=== PATIENT | female | born 1985 | race African-American/Black ===

== ENCOUNTER 2017-03-04 01:16 | Emergency (ER) | payer BC ==
[~2017-03-04] VITALS: Ht 167.6 cm; Wt 101.5 kg
[2017-03-04 02:02] LABS: HEMATOCRIT 34.3 % (36.0-46.0); MCH 26.6 PG (29.0-34.0); MCHC 33.8 G/DL (30.0-36.0); MCV 78.7 FL (83-99); MEAN PLAT.VOLUME 10.2 uM^3 (9.5-12.4); PLATELET COUNT 251 K/uL (156-360); RBC DIS.WIDTH-CV 13.7 % (11.8-14.6); RBC DIS.WIDTH-SD 39.1 % (39-53); RED BLOOD COUNT 4.36 M/uL (3.80-5.20); WHITE BLOOD COUNT 7.2 K/uL (4.1-10.2)
[2017-03-04 02:17] LABS: ADD MIUA? NO; BILIRUBIN NEGATIVE; BLOOD NEGATIVE; COLOR YELLOW ((YELLOW)); GLUCOSE (STRIP) NEGATIVE; KETONES NEGATIVE; LEUKOCYTES NEGATIVE; NITRITE NEGATIVE; PROTEIN (STRIP) NEGATIVE; UCUL ADDED? NO; UROBILINOGEN 0.2 MG/DL (0.2-1.0)
[2017-03-04 02:20] LABS: CHLORIDE 105 mEq/L (99-109); SODIUM 136 mEq/L (136-147)
[2017-03-04 02:22] LABS: GLUCOSE 125 mg/dL (70-99)
[2017-03-04 02:23] LABS: ANION GAP 9 MEQ/L (2-14)
[2017-03-04 02:26] LABS: GFR ESTIMATE (CALCULATED) > 59 mL/min/
[2017-03-04 02:27] LABS: UREA NITROGEN (BUN) 7 mg/dL (9-23)
[2017-03-04 02:52] LABS: QUANTITATIVE HCG 20285.8 MIU/ML
[2017-03-04 04:18] VITALS: BP 139/92
== END 2017-03-04 04:19 | disposition home or self-care (01) ==
LOC: EME 01:16
PROVIDERS: Emergency Medicine
DX: O99.89 Other specified diseases and conditions complicating pregnancy, childbirth and the puerperium (principal); R10.33 Periumbilical pain; Z3A.17 17 weeks gestation of pregnancy
CPT/HCPCS: 76815; 80048; 81003; 84702; 85027; 87086; 99281; 99284

== ENCOUNTER → 2017-03-16 | Outpatient (CLI) | payer BC | END | disposition home or self-care (01) | LOC: CDC 10:18 | DX: I10 Essential (primary) hypertension (principal) | CPT/HCPCS: 93000 ==

== ENCOUNTER 2017-07-31 11:31 | Outpatient (CLI) | payer BC, OTHER ==
[2017-07-31] VITALS (11 sets, daily range): BP systolic 123–141; BP diastolic 67–87
[2017-07-31 12:48] LABS: EOSINOPHIL (%) 0.8 % (0-5); HEMATOCRIT 35.7 % (36.0-46.0); IMMATURE GRANULOCYTE (%) 0.5 % (0.0-0.7); INSTRUMENT ABS NEUTROPHIL CT 2.3 K/uL; LYMPHOCYTE COUNT 0.9 K/uL (1.0-2.8); MCH 26.1 PG (29.0-34.0); MCHC 33.6 G/DL (30.0-36.0); MCV 77.6 FL (83-99); MEAN PLAT.VOLUME 10.6 uM^3 (9.5-12.4); MONOCYTE (%) 10.8 % (3-12); MONOCYTE COUNT 0.4 K/uL (0-0.8); NEUTROPHIL (%) 62.7 % (45-76); NEUTROPHIL COUNT 2.3 K/uL (1.8-6.4); PLATELET COUNT 206 K/uL (156-360); RBC DIS.WIDTH-CV 15.2 % (11.8-14.6); RBC DIS.WIDTH-SD 42.2 % (39-53); WHITE BLOOD COUNT 3.7 K/uL (4.1-10.2)
[2017-07-31 12:56] LABS: ADD MIUA? NO; BILIRUBIN NEGATIVE; BLOOD NEGATIVE; COLOR YELLOW ((YELLOW)); GLUCOSE (STRIP) NEGATIVE; KETONES NEGATIVE; LEUKOCYTES NEGATIVE; NITRITE NEGATIVE; PROTEIN (STRIP) NEGATIVE; SPECIFIC GRAVITY 1.008 (1.000-1.030); UCUL ADDED? NO; UROBILINOGEN 0.2 MG/DL (0.2-1.0)
[2017-07-31 12:59] LABS: ANION GAP 7 MEQ/L (2-14); CHLORIDE 108 MEQ/L (99-109); POTASSIUM 4.2 MEQ/L (3.7-5.4); SAMPLE HEMOLYSIS CHECK 0; SAMPLE ICTERIC CHECK 0; SAMPLE LIPEMIA CHECK 0; SODIUM 139 MEQ/L (136-147)
[2017-07-31 13:01] LABS: TOTAL BILIRUBIN 0.4 MG/DL (0.0-1.0)
[2017-07-31 13:04] LABS: ALKALINE PHOSPHATASE 210 IU/L (3-129); GFR ESTIMATE (CALCULATED) > 59 mL/min/; GLUCOSE 78 mg/dL (70-99); UREA NITROGEN (BUN) 7 mg/dL (9-23); URIC ACID 4.5 mg/dL (3.1-9.2)
[2017-07-31 13:15] LABS: LACTATE DEHYDROGENASE 187 IU/L (20-246)
[2017-07-31 13:19] LABS: UR CREATININE CONCENTRATION 52.2 MG/DL
[2017-07-31 13:29] LABS: AMPHETAMINE NEGATIVE (500 ng/mL); BARBITURATES NEGATIVE (200 ng/mL); BENZODIAZEPINES NEGATIVE (150 ng/mL); COCAINE NEGATIVE (150 ng/mL); INTERNAL CONTROLS VALID? YES; METHADONE NEGATIVE (200 ng/mL); METHAMPHETAMINE NEGATIVE (500 ng/mL); OPIATES (MORPHINE) NEGATIVE (100 ng/mL); OXYCODONE NEGATIVE (100 ng/mL); PHENCYCLIDINE NEGATIVE (25 ng/mL); PROPOXYPHENE NEGATIVE (300 ng/mL); THC CANNABINOIDS NEGATIVE (50 ng/mL); TRICYCLIC ANTIDEPRESSANTS NEGATIVE (300 ng/mL)
[2017-08-01] MEDS ORDERED: LABETALOL HCL100 MG PO (08:10)
== END 2017-07-31 14:53 | disposition home or self-care (01) ==
LOC: LDRP-OP 11:31 → 2WEST 11:32
PROVIDERS: Obstetrics & Gynecology
DX: O16.3 Unspecified maternal hypertension, third trimester (principal); I10 Essential (primary) hypertension; O34.13 Maternal care for benign tumor of corpus uteri, third trimester; D25.9 Leiomyoma of uterus, unspecified; Z3A.38 38 weeks gestation of pregnancy; Z79.82 Long term (current) use of aspirin
CPT/HCPCS: 59025; 80053; 81003; 82570; 83615; 84156; 84550; 85025; 86850; 86900; 86901; G0378

== ENCOUNTER 2017-08-01 07:28 | Inpatient (IN) | payer BC, OTHER ==
[2017-08-01] VITALS (18 sets, daily range): BP systolic 116–159; BP diastolic 61–98
[~2017-08-01] VITALS: Ht 167.6 cm; Wt 109.5 kg
[2017-08-01] MEDS ORDERED: LABETALOL HCL100 MG PO (08:10)
[2017-08-01 08:42] LABS: EOSINOPHIL (%) 1.1 % (0-5); HEMATOCRIT 34.5 % (36.0-46.0); IMMATURE GRANULOCYTE (%) 0.6 % (0.0-0.7); INSTRUMENT ABS NEUTROPHIL CT 2.4 K/uL; LYMPHOCYTE COUNT 0.7 K/uL (1.0-2.8); MCH 25.6 PG (29.0-34.0); MCV 77.4 FL (83-99); MEAN PLAT.VOLUME 10.2 uM^3 (9.5-12.4); MONOCYTE (%) 9.5 % (3-12); MONOCYTE COUNT 0.3 K/uL (0-0.8); NEUTROPHIL (%) 67.5 % (45-76); NEUTROPHIL COUNT 2.4 K/uL (1.8-6.4); PLATELET COUNT 205 K/uL (156-360); RBC DIS.WIDTH-CV 15.1 % (11.8-14.6); RBC DIS.WIDTH-SD 42.2 % (39-53); RED BLOOD COUNT 4.46 M/uL (3.80-5.20); WHITE BLOOD COUNT 3.6 K/uL (4.1-10.2)
[2017-08-01 09:24] LABS: ALKALINE PHOSPHATASE 195 IU/L (3-129); ANION GAP 9 MEQ/L (2-14); CHLORIDE 107 MEQ/L (99-109); GFR ESTIMATE (CALCULATED) > 59 mL/min/; POTASSIUM 4.1 MEQ/L (3.7-5.4); SAMPLE HEMOLYSIS CHECK 0; SAMPLE ICTERIC CHECK 0; SAMPLE LIPEMIA CHECK 0; SODIUM 136 MEQ/L (136-147); UREA NITROGEN (BUN) 9 mg/dL (9-23)
[2017-08-01 09:29] LABS: GLUCOSE 159 mg/dL (70-99); TOTAL BILIRUBIN 0.3 MG/DL (0.0-1.0)
[2017-08-01 16:36] LABS: ADD MIUA? NO; BILIRUBIN NEGATIVE; BLOOD NEGATIVE; COLOR STRAW ((YELLOW)); GLUCOSE (STRIP) NEGATIVE; KETONES NEGATIVE; LEUKOCYTES NEGATIVE; NITRITE NEGATIVE; PROTEIN (STRIP) NEGATIVE; SPECIFIC GRAVITY 1.006 (1.000-1.030); UCUL ADDED? NO; UROBILINOGEN 0.2 MG/DL (0.2-1.0)
[2017-08-01 18:03] LABS: UR CREATININE CONCENTRATION 43.2 MG/DL
[2017-08-02] VITALS (37 sets, daily range): BP systolic 102–173; BP diastolic 53–94
[2017-08-03] VITALS (7 sets, daily range): BP systolic 108–136; BP diastolic 55–80
[2017-08-03 06:16] LABS: EOSINOPHIL (%) 0 % (0-5); HEMATOCRIT 31.4 % (36.0-46.0); IMMATURE GRANULOCYTE (%) 0.6 % (0.0-0.7); IMMATURE GRANULOCYTE COUNT 0.1 K/uL; INSTRUMENT ABS NEUTROPHIL CT 12.3 K/uL; LYMPHOCYTE COUNT 0.7 K/uL (1.0-2.8); MCH 26.8 PG (29.0-34.0); MCHC 34.1 G/DL (30.0-36.0); MCV 78.5 FL (83-99); MEAN PLAT.VOLUME 11.4 uM^3 (9.5-12.4); MONOCYTE (%) 7.2 % (3-12); NEUTROPHIL COUNT 12.3 K/uL (1.8-6.4); PLATELET COUNT 215 K/uL (156-360); RBC DIS.WIDTH-CV 15.3 % (11.8-14.6); RBC DIS.WIDTH-SD 43.4 % (39-53); WHITE BLOOD COUNT 14.1 K/uL (4.1-10.2)
[2017-08-04 03:45] VITALS: BP 127/77
[2017-08-04 07:27] VITALS: BP 145/93
[2017-08-04] MEDS ORDERED: IBUPROFEN800 MG PO (09:52)
== END 2017-08-04 17:00 | disposition home or self-care (01) | DRG 775 ==
LOC: LDRP-OP 07:28 → 2WEST 07:29 → LDRP-OP 16:46 → 2WEST 08-02 23:03 → LDRP-OP 09-07 16:42
PROVIDERS: Advanced Practice Midwife; Obstetrics & Gynecology
PROC: 0HQ9XZZ Repair Perineum Skin, External Approach (ICD-10-PCS; principal; 2017-08-02)
PROC: 3E0P7VZ Introduction of Hormone into Female Reproductive, Via Natural or Artificial Opening (ICD-10-PCS; principal; 2017-08-02)
PROC: 10907ZC Drainage of Amniotic Fluid, Therapeutic from Products of Conception, Via Natural or Artificial Opening (ICD-10-PCS; principal; 2017-08-02)
PROC: 3E0R3BZ Introduction of Anesthetic Agent into Spinal Canal, Percutaneous Approach (ICD-10-PCS; principal; 2017-08-02)
PROC: 3E0P3VZ Introduction of Hormone into Female Reproductive, Percutaneous Approach (ICD-10-PCS; principal; 2017-08-02)
PROC: 00HU33Z Insertion of Infusion Device into Spinal Canal, Percutaneous Approach (ICD-10-PCS; principal; 2017-08-02)
PROC: 10E0XZZ Delivery of Products of Conception, External Approach (ICD-10-PCS; principal; 2017-08-02)
DX: O70.0 First degree perineal laceration during delivery (principal); O16.4 Unspecified maternal hypertension, complicating childbirth; I10 Essential (primary) hypertension; O99.214 Obesity complicating childbirth; E66.9 Obesity, unspecified; Z68.30 Body mass index [BMI] 30.0-30.9, adult; Z3A.38 38 weeks gestation of pregnancy; Z37.0 Single live birth; Z79.82 Long term (current) use of aspirin
CPT/HCPCS: 59025; 80053; 81003; 82570; 83615; 84156; 84550; 85025; 86850; 86900; 86901; 88307; C1755; G0378; J0595; J3010; J7120